=== PATIENT | female | born 2000 | race Caucasian/White ===

== ENCOUNTER 2023-12-23 22:04 | Emergency (ER) | payer SELFPAY ==
--- NOTE | 2023-12-23 22:30 | ER ---
Nurse's Notes [facility] Name: Shawanda Harrington Age: 23 yrs Sex: Female : 2000 Arrival Date: 12/23/2023 Time: 22:04 Bed IW2 Private MD: Diagnosis: Pediculosis due to Pediculus humanus capitis Presentation: 12/22 22:16 Chief complaint: Patient states: itching scalp with bugs,onset December 03. Coronavirus pf1 screen: Vaccine status: Patient reports receiving the 2nd dose of the covid vaccine. Client denies travel out of the [place] in the last 14 days. At this time, the client does not indicate any symptoms associated with coronavirus-19. Ebola Screen: Patient negative for fever greater than or equal to 101.5 degrees Fahrenheit, and additional compatible Ebola Virus Disease symptoms. Onset: The symptoms/episode began/occurred 12/04/23. Anaphylaxis evaluation, no signs or symptoms of anaphylaxis were noted. Initial Sepsis Screen: Does the patient meet any 2 criteria? HR > 90 bpm. No. Patient's initial sepsis screen is negative. Does the patient have a suspected source of infection? No. Patient's initial sepsis screen is negative. Risk Assessment: Do you want to hurt yourself or someone else? Patient reports no desire to harm self or others. Onset of symptoms was December 04, 2023. 22:16 Method Of Arrival: Ambulatory pf1 22:16 Acuity: JOSEFINA 5 pf1 Triage Assessment: 22:24 General: Appears in no apparent distress. unkempt, well developed, Behavior is calm, pf1 cooperative, appropriate for age, quiet. Pain: Denies pain. Derm: Reports itching, with bugs to scalp. 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 - Infectious Disease History:: Denies. - Social history:: Smoking status: Patient denies any tobacco usage or history of. Patient uses alcohol, only on a social basis. Patient/guardian denies using street drugs. Screenin:37 [facility] ED Fall Risk Assessment (Adult) History of falling in the last 3 months, pf1 including since admission No falls in past 3 months (0 pts) Confusion or Disorientation No (0 pts) Intoxicated or Sedated No (0 pts) Impaired Gait No (0 pts) Mobility Assist Device Used No (0 pt) Altered Elimination No (0 pt) Score/Fall Risk Level 0 - 2 = Low Risk Oriented to surroundings, Maintained a safe environment, Educated pt \T\ family on fall prevention, incl call for assistance when getting out of bed, Assessed \T\ reinforced patient's understanding of fall precautions, Provided non-skid footwear, Hourly rounding (assess needs \T\ fall precautionary measures) done, Used ambulatory aids as needed (educated on \T\ assisted with), Used gait belt as appropriate. Abuse screen: Denies threats or abuse. Nutritional screening: No deficits noted. Tuberculosis screening: No symptoms or risk factors identified. Assessment: 22:36 General: Appears in no apparent distress. uncomfortable, unkempt, well developed, pf1 Behavior is calm, cooperative, appropriate for age, quiet. Pain: Denies pain. Neuro: No deficits noted. Level of Consciousness is awake, alert, obeys commands, Oriented to person, place, time, situation. Cardiovascular: No deficits noted. Capillary refill < 3 seconds Patient's skin is warm and dry. Respiratory: No deficits noted. Airway is patent Respiratory effort is even, unlabored, Respiratory pattern is regular, symmetrical, Breath sounds are clear bilaterally. GI: No deficits noted. No signs and/or symptoms were reported involving the gastrointestinal system. : No deficits noted. No signs and/or symptoms were reported regarding the genitourinary system. EENT: No deficits noted. No signs and/or symptoms were reported regarding the EENT system. Derm: Reports itching, with bugs to scalp. Vital Signs: 22:16 BP 106 / 78; Pulse 95; Resp 16; Temp 98.3; Pulse Ox 100% on R/A; Weight 76.2 kg; Height pf1 5 ft. 2 in. ; Pain 0/10; 22:16 Body Mass Index 30.73 (76.20 kg, 157.48 cm) pf1 22:16 Pain Scale: Adult pf1 ED Course: 22:09 Patient arrived in ED. gm2 22:10 Papito Garcia MD is Attending Physician. sp4 22:22 Triage completed. pf1 22:24 Arm band placed on right wrist. pf1 22:24 Patient has correct armband on for positive identification. pf1 22:37 No provider procedures requiring assistance completed. Patient did not have IV access pf1 during this emergency room visit. 22:38 Provided Education on: follow up and prescriptions. pf1 Administered Medications: No medications were administered Medication: 22:38 VIS not applicable for this client. pf1 Outcome: 22:29 Discharge ordered by MD. sp4 22:38 Discharged to home ambulatory, pf1 22:38 Condition: stable 22:38 Discharge instructions given to patient, Instructed on discharge instructions, follow up and referral plans. Demonstrated understanding of instructions, follow-up care, medications, Prescriptions given X 2, 22:39 Patient left the ED. pf1 Signatures: Rosibel Patel RN RN pf1 Papito Garcia MD MD sp4 Sarah Ross gm2
--- NOTE | 2023-12-23 22:30 | EDPHYS ---
Physician Documentation [facility] Name: Shawanda Harrington Age: 23 yrs Sex: Female : 2000 Arrival Date: 12/23/2023 Time: 22:04 Bed IW2 Private MD: ED Physician Papito Garcia HPI: 12/22 22:10 This 23 yrs old Female presents to ER via Unassigned with complaints of Gen sp4 complaint. . 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 - Infectious Disease History:: Denies. - Social history:: Smoking status: Patient denies any tobacco usage or history of. Patient uses alcohol, only on a social basis. Patient/guardian denies using street drugs. Vital Signs: 22:16 BP 106 / 78; Pulse 95; Resp 16; Temp 98.3; Pulse Ox 100% on R/A; Weight 76.2 kg; Height pf1 5 ft. 2 in. ; Pain 0/10; 22:16 Body Mass Index 30.73 (76.20 kg, 157.48 cm) pf1 22:16 Pain Scale: Adult pf1 MDM: 22:14 Patient medically screened. sp4 Administered Medications: No medications were administered Disposition Summary: 12/23/23 22:29 Discharge Ordered Problem: new sp4 Symptoms: have improved sp4 Condition: Stable sp4 Diagnosis - Pediculosis due to Pediculus humanus capitis sp4 Followup: sp4 - With: Private Physician - When: 7 - 10 days - Reason: Discharge Instructions: - Discharge Summary Sheet sp4 - Lice, Adult sp4 Forms: - Prescription Opioid Use sp4 Prescriptions: - ivermectin 1 % Topical cream - apply 1 application TOPICAL route once Apply once, leave on for 10 minutes then sp4 wash off; 45 gram; Refills: 0, Product Selection Permitted - permethrin 1 % Topical liquid - apply 60 milliliter TOPICAL route once may repeat treatment 7 days after first sp4 treatment if live lice remain; 120 milliliter; Refills: 0, Product Selection Permitted Signatures: Rosibel Patel RN RN pf1 Papito Garcia MD MD sp4
[2023-12-24 04:56] VITALS: BP 106/78; TEMP 98.3; O2SAT 100
== END 2023-12-23 22:39 | disposition home or self-care (01) ==
LOC: ER 22:04
DX: B85.0 Pediculosis due to Pediculus humanus capitis (principal); Z88.1 Allergy status to other antibiotic agents
CPT/HCPCS: 99283

== ENCOUNTER 2024-06-27 18:50 | Emergency (ER) | payer SELFPAY ==
[2024-06-27] MEDS ORDERED: NA CHLORIDE 0.9% 1,000 ML ONE (19:14)
[2024-06-27 19:23] LABS: Absolute Lymphocytes (CBC) 1.8 K/uL (0.7-4.9); Absolute Monocytes 0.3 K/uL (0.1-1.3); Absolute Neutrophil 4.1 K/uL (1.8-8.0); Basophils % 0.8 % (0-1.3); Eosinophils % 0.5 % (0-4.4); Hemoglobin 11.3 g/dL (12.0-15.0); Lymphocytes % 28.5 % (15.3-44.8); MCH 26.2 pg (27.0-35.0); MCHC 32.2 g/dL (32.0-36.0); MCV 81.6 fL (80-100); MPV 8.6 fL (7.6-11.3); Monocytes % 4.3 % (3.3-12.3); Neutrophils % 65.9 % (41.7-73.7); Platelets 213 thou/uL (152-406); Protime INR 1.17; RBC Red Blood Cell Count 4.29 M/uL (3.86-4.86); Red Cell Distribution Width 13.4 % (12.1-15.2)
[2024-06-27 19:40] LABS: ALT/SGPT 17 U/L (13-56); Albumin 3.9 g/dL (3.4-5.0); Albumin/Globulin Ratio 1.2 (1.1-1.8); Alkaline Phosphatase 53 U/L (45-117); Anion Gap 9.7 mEq/L (5.0-15.0); BUN Blood Urea Nitrogen 14 mg/dL (7-18); Bicarbonate 24 mEq/L (21-32); Bilirubin Total 0.3 mg/dL (0.2-1.0); Globulin 3.2 g/dL (2.3-3.5); Glomerular Filtration Rate 93 ml/min (=/>90); Glucose Level 114 mg/dL (74-106); Potassium 3.7 mEq/L (3.5-5.1); Protein, Total 7.1 g/dL (6.4-8.2); Sodium Level 142 mEq/L (136-145)
[2024-06-27 19:43] LABS: AST/SGOT < 10 U/L (15-37); Bilirubin Direct < 0.2 mg/dL (0-0.2); Bilirubin Indirect, Calculated 0.1 mg/dL (0.2-0.8); Troponin High Sensitivity < 3.0 pg/mL (<58.9)
--- NOTE | 2024-06-27 19:44 | RAD REPORT ---
EXAMINATION: ONE VIEW CHEST XR CLINICAL INDICATION: Female, 24 years old.syncope TECHNIQUE: 1 View, AP supine, X-ray of the chest was performed. [id number]. COMPARISON: No prior exam. FINDINGS: Lungs and pleura: Clear lungs. No effusion. Heart and mediastinum: Normal heart size. Unremarkable mediastinal contours. Osseous structures: No acute abnormality. Tubes/lines: None Other: None. IMPRESSION: No acute intrathoracic abnormality.
[2024-06-27 20:25] LABS: Sqamous Epithelial <5 /HPF (None Seen); Urine Bacteria >50 /HPF (<20); Urine Bilirubin NEGATIVE (Negative); Urine Blood Trace (Negative); Urine Clarity Extremely Turbid (Clear); Urine Color Yellow (Yellow); Urine Culture Reflex Order REFLEXED; Urine Glucose NEGATIVE (Negative); Urine Ketones TRACE (Negative); Urine Micro Reflex YN NO BILL MICROSCOPIC; Urine Mucus 4+ /HPF (None Seen); Urine Nitrite NEGATIVE (Negative); Urine Protein 1+ (Negative); Urine Urobilinogen Normal (Normal); Urine pH 5.5 (5.0-7.0)
--- NOTE | 2024-06-27 20:54 | RAD REPORT ---
EXAMINATION: CT HEAD WITHOUT CONTRAST CLINICAL INDICATION: Female, 24 years old.SYNCOPE TECHNIQUE: Axial CT images from the skull base to the vertex without intravenous contrast. Coronal an d sagittal reformatted images were created from the data set. One or more of the following dose reduction techniques were used: Automated exposure control, adjustment of the mA and/or kV according to patient size, and/or iterative reconstruction. Unless otherwise specified, incidental findings do not require dedicated imaging follow-up. [id number]. COMPARISON: No prior exam. FINDINGS: INTRACRANIAL: No acute intracranial hemorrhage. No hydrocephalus. No mass effect or midline shift. No significant white matter disease. VASCULATURE: No visualized abnormalities in the arteries or dural venous sinuses. SCALP/SKULL: No significant soft tissue or osseous abnormalities. SINUSES: The visualized paranasal sinuses and mastoid air cells are predominantly clear. IMPRESSION: No acute intracranial abnormality.
[2024-06-27] MEDS ORDERED: CEFTRIAXONE 1000 MG/VIAL ONE (22:41)
--- NOTE | 2024-06-27 23:07 | EDPHYS ---
Physician Documentation [facility] Name: Shawanda Harrington Age: 24 yrs Sex: Female : 2000 Arrival Date: 06/27/2024 Time: 18:50 Bed 13 Private MD: ED Physician Garry Lott HPI: 06/27 19:05 This 24 yrs old Female presents to ER via EMS with complaints of Syncope. cp 19:05 The patient has experienced syncope, lost consciousness. Onset: The symptoms/episode cp began/occurred just prior to arrival. Duration: This was a single episode, that lasted an unknown period of time. Associated injury: The patient did not suffer any apparent associated injury. Associated signs and symptoms: Pertinent positives: dizziness, lightheadedness, Pertinent negatives: abdominal pain, chest pain, palpitations, seizure. Current symptoms: Currently, the patient is not experiencing any symptoms, the patient feels back to baseline. 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 Unsure how cp long she had lost consciousness, but reports being lightheaded prior to losing consciousness. 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 - Infectious Disease History:: Denies. - Social history:: Smoking status: Patient denies any tobacco usage or history of. ROS: 19:10 Constitutional: Negative for body aches, chills, fever, poor PO intake, cp 19:10 Eyes: Negative for injury, pain, redness, and discharge, cp 19:10 ENT: Negative for drainage from ear(s), ear pain, sore throat, difficulty swallowing, difficulty handling secretions, 19:10 Neck: Negative for pain with movement, pain at rest, stiffness, 19:10 Cardiovascular: Negative for chest pain, edema, palpitations, 19:10 Respiratory: Negative for cough, shortness of breath, wheezing, 19:10 Abdomen/GI: Negative for abdominal pain, vomiting, diarrhea, constipation, 19:10 Back: Negative for pain at rest, pain with movement, 19:10 : Negative for urinary symptoms, 19:10 Neuro: Positive for syncope, lightheaded, Negative for altered mental status, dizziness, headache, numbness, seizure activity, weakness, 19:10 All other systems are negative, cp Exam: 19:07 ECG was reviewed by the Attending Physician. cp 19:15 Constitutional: The patient appears in no acute distress, alert, awake, comfortable, cp non-diaphoretic, non-toxic, well developed, well nourished, 19:15 Head/Face: Normocephalic, atraumatic. cp 19:15 Eyes: Periorbital structures: appear normal, Pupils: equal, round, and reactive to light and accomodation, Extraocular movements: intact throughout, Conjunctiva: normal, no exudate, no injection, Sclera: no appreciated abnormality, Lids and lashes: appear normal, bilaterally, 19:15 ENT: External ear(s): are unremarkable, Nose: is normal, Mouth: Lips: moist, Oral mucosa: pink and intact, moist, Posterior pharynx: Airway: no evidence of obstruction, patent, 19:15 Neck: C-spine: vertebral tenderness, is not appreciated, crepitus, is not appreciated, ROM/movement: is normal, is supple, without pain, no range of motions limitations, no nuchal rigidity, 19:15 Chest/axilla: Inspection: normal, 19:15 Cardiovascular: Rate: normal, Rhythm: regular, 19:15 Respiratory: the patient does not display signs of respiratory distress, Respirations: normal, no use of accessory muscles, no retractions, labored breathing, is not present, Breath sounds: are clear throughout, no decreased breath sounds, no stridor, no wheezing, 19:15 Abdomen/GI: Inspection: abdomen appears normal, Palpation: abdomen is soft and non-tender, in all quadrants, 19:15 Back: pain, is absent, ROM is normal, 19:15 Musculoskeletal/extremity: Exam is negative for decreased range of motion, deformity, injury, 19:15 Neuro: Orientation: to person, place \T\ time. Mentation: is normal, Cerebellar function: is grossly normal, Motor: moves all fours, strength is normal, Sensation: no obvious gross deficits, Vital Signs: 19:04 BP 101 / 63; Pulse 83; Resp 16; Temp 97.8; Pulse Ox 100% on R/A; Weight 81.65 kg; mb9 Height 5 ft. 5 in. ; Pain 0/10; 19:18 BP 100 / 66 Supine; Pulse 88; Resp 16; Pulse Ox 100% ; mb9 19:20 BP 95 / 66 Sitting; Pulse 105; Resp 18; Pulse Ox 100% ; mb9 19:22 BP 95 / 68; Pulse 102; Resp 16; Pulse Ox 100% on R/A; mb9 23:04 BP 105 / 69; Pulse 90; Resp 16; Pulse Ox 99% on R/A; mb9 19:04 Body Mass Index 29.95 (81.65 kg, 165.1 cm) mb9 19:04 Pain Scale: Adult mb9 MDM: 18:57 Medical Screening Exam initiated 19:15 Differential Diagnosis: cardiac arrhythmia, cerebrovascular accident, GI bleed, pseudo cp seizure, seizure, transient ischemic attack, vasovagal episode, anemia. 23:05 Data reviewed: vital signs, nurses notes, lab test result(s), EKG, radiologic studies, CT scan, plain films. 23:05 I considered the following discharge prescriptions or medication management in the emergency department Medications were administered in the Emergency Department. See MAR. 23:05 Independent interpretation of the following test(s) in the Emergency Department EKG: See my EKG interpretation above. Counseling: I had a detailed discussion with the patient and/or guardian regarding the historical points, exam findings, and any diagnostic results supporting the discharge/admit diagnosis, lab results, radiology results, the need for outpatient follow up, a family practitioner, to return to the emergency department if symptoms worsen or persist or if there are any questions or concerns that arise at home. Response to treatment: the patient's symptoms have markedly improved after treatment, and as a result, I will discharge patient. 06/27 19:00 Order name: Basic Metabolic Panel; Complete Time: 19:51 06/27 22:41 Interpretation: Normal except: CL 112; GLUC 114. 06/27 19:00 Order name: CBC with Diff; Complete Time: 19:51 06/27 22:41 Interpretation: Normal except: HGB 11.3; HCT 35.0; MCH 26.2. 06/27 19:00 Order name: LFT's; Complete Time: 19:51 06/27 22:41 Interpretation: Normal except: AST < 10; IBILI, CALC 0.1. cp 06/27 19:00 Order name: Magnesium; Complete Time: 19:51 cp 06/27 19:00 Order name: PT-INR; Complete Time: 19:51 cp 06/27 19:00 Order name: Troponin HS; Complete Time: 19:51 cp 06/27 19:00 Order name: Urinalysis W/Microscopic; Complete Time: 22:32 cp 06/27 22:32 Interpretation: Normal except: [facility] Extremely Turbid; UKET TRACE; UBLD Trace; UPROT 1+; cp UESTR 75; UWBC 10-20; URBC 5-10; UBACT >50; MUCUS 4+. 06/27 19:00 Order name: Test, Urine; Complete Time: 22:32 cp 06/27 20:28 Order name: Urine Culture EDMS 06/27 19:00 Order name: XRAY Chest (1 view); Complete Time: 19:51 cp 06/27 19:51 Order name: CT Head Brain wo Cont; Complete Time: 22:32 cp 06/27 19:00 Order name: Cardiac monitoring; Complete Time: 19:04 cp 06/27 19:00 Order name: EKG - Nurse/Tech; Complete Time: 19:04 cp 06/27 19:00 Order name: IV Saline Lock; Complete Time: 19:04 cp 06/27 19:00 Order name: Labs collected and sent; Complete Time: 19:04 cp 06/27 19:00 Order name: O2 Per Protocol; Complete Time: 19:04 cp 06/27 19:00 Order name: O2 Sat Monitoring; Complete Time: 19:04 cp 06/27 19:00 Order name: Orthostatic Blood Pressure; Complete Time: 19:08 cp EC:07 Rate is 82 beats/min. Rhythm is regular. TX interval is normal. QRS interval is normal. cp QT interval is normal. T waves are Inverted in lead aVR. Interpreted by me. Reviewed by me. Administered Medications: 19:25 Drug: NS 0.9% IV 1000 ml IV at 1 bolus Per protocol; to be given as a bolus over 60 mb9 minutes Route: IV; Rate: 1 bolus; Site: left antecubital; 21:09 Follow up: Response: No adverse reaction; IV Status: Completed infusion mb9 22:48 Drug: Rocephin IV 1 grams IV at calculated rate once; Given slow IV push per pharmacy mb9 instructions Route: IV; Rate: calculated rate; Site: left antecubital; 23:32 Follow up: Response: No adverse reaction; IV Status: Completed infusion mb9 Disposition Summary: 06/27/24 23:06 Discharge Ordered Notes: Location: Home cp Problem: new cp Symptoms: have improved cp Condition: Stable cp Diagnosis - UTI/ Urinary tract infection, site not specified cp - Syncope cp Followup: cp - With: Private Physician - When: 2 - 3 days - Reason: Recheck today's complaints Discharge Instructions: - Syncope cp - Urinary Tract Infection, Adult cp - Discharge Summary Sheet mb9 Forms: - Medication Reconciliation Form cp - Antibiotic Education cp - Prescription Opioid Use cp - Patient Portal Instructions cp - Leadership Thank You Letter cp - Work release form mb9 Prescriptions: - Bactrim DS 800-160 mg Oral Tablet - take 1 tablet ORAL route every 12 hours for 7 days; 14 tablet; Refills: 0, cp Product Selection Permitted Signatures: Dispatcher [employer] EDMS Garry Lay PA PA cp Wilkerson, Mary Beth, RN RN mb9 Corrections: (The following items were deleted from the chart) 19:01 19:01 BASIC METABOLIC PANEL+C.LAB.BRZ ordered. EDMS EDMS 19:01 19:01 CBC+H.LAB.BRZ ordered. EDMS EDMS 19: 19:01 HEPATIC FUNCTION+C.LAB.BRZ ordered. EDMS EDMS 19:01 19:01 MAGNESIUM+C.LAB.BRZ ordered. EDMS EDMS 19: 19:01 PROTIME (+INR)+COAG.LAB.BRZ ordered. EDMS EDMS 19:01 19:01 Troponin High Sensitivity+C.LAB.BRZ ordered. EDMS EDMS 19:01 19:01 Urinalysis W/Microscopic+U.LAB.BRZ ordered. EDMS EDMS 19:01 19:01 Test, Urine+UC.LAB.BRZ ordered. EDMS EDMS 19: 19:01 Chest Single View+RAD.RAD.BRZ ordered. EDMS EDMS 19:51 19:51 Head Brain Wo Cont+CT.RAD.BRZ ordered. EDMS EDMS 23:05 23:05 Recheck B/P ordered. cp cp 06/28 23:24 06/27 19:10 All other systems are negative, cp cp 06/28 23:31 06/27 19:00 Differential Diagnosis: cardiac arrhythmia, cerebrovascular accident, GI cp bleed, pseudo seizure, seizure, transient ischemic attack, vasovagal episode, anemia, cp
--- NOTE | 2024-06-27 23:07 | ER ---
Nurse's Notes [facility] Name: Shawanda Harrington Age: 24 yrs Sex: Female : 2000 Arrival Date: 06/27/2024 Time: 18:50 Bed 13 Private MD: Diagnosis: UTI/ Urinary tract infection, site not specified;Syncope Presentation: 06/27 19:04 Chief complaint: EMS states: "toned out for syncopal episode while standing at work. Pt mb9 had positive LOC and hit nose and head. Pt denies pain at this time. Coronavirus screen: Vaccine status: Patient reports receiving the 2nd dose of the covid vaccine. Ebola Screen: No symptoms or risks identified at this time. Initial Sepsis Screen: Does the patient meet any 2 criteria? No. Patient's initial sepsis screen is negative. Does the patient have a suspected source of infection? No. Patient's initial sepsis screen is negative. Risk Assessment: Do you want to hurt yourself or someone else? Patient reports no desire to harm self or others. Onset of symptoms was June 27, 2024. Care prior to arrival: Medication(s) given: Normal saline infusion, 1000 mL, IV initiated. 20 GA, in the left antecubital area. 19:04 Acuity: JOSEFINA 3 mb9 19:04 Method Of Arrival: EMS: [facility] mb9 Triage Assessment: 19:06 General: Appears in no apparent distress. Behavior is calm, cooperative. Pain: Denies mb9 pain. EENT: No signs and/or symptoms were reported regarding the EENT system. Neuro: [place] Agitation-Sedation Scale (RASS): 0 - Alert and Calm Level of Consciousness is awake, alert, obeys commands, Oriented to person, place, time, situation, Appropriate for age Denies weakness dizziness. Cardiovascular: Patient's skin is warm and dry. Respiratory: Airway is patent Respiratory effort is even, unlabored, Respiratory pattern is regular, symmetrical. GI: No signs and/or symptoms were reported involving the gastrointestinal system. : No signs and/or symptoms were reported regarding the genitourinary system. Derm: Skin is intact, Skin is dry, Skin is pale, Skin temperature is cool. Musculoskeletal: Range of motion: intact in all extremities. AIR SAMPLING AND MONITORING: 19:23 LMP 06/26/2024, unknown mb9 Historical: - Allergies: 18:53 Amoxicillin; mb9 - Home Meds: 19:23 None [Active]; mb9 - PMHx: 19:23 None; mb9 - PSHx: 19:23 None; mb9 - Immunization history:: Adult Immunizations up to date. - Infectious Disease History:: Denies. - Social history:: Smoking status: Patient denies any tobacco usage or history of. Screenin:53 [facility] ED Fall Risk Assessment (Adult) History of falling in the last 3 months, mb9 including since admission Yes- single mechanical fall (1 pt) Confusion or Disorientation No (0 pts) Intoxicated or Sedated No (0 pts) Impaired Gait No (0 pts) Mobility Assist Device Used No (0 pt) Altered Elimination No (0 pt) Score/Fall Risk Level 0 - 2 = Low Risk Oriented to surroundings, Maintained a safe environment, Educated pt \\T\\ family on fall prevention, incl call for assistance when getting out of bed. Abuse screen: Denies threats or abuse. Nutritional screening: No deficits noted. Tuberculosis screening: No symptoms or risk factors identified. Assessment: 19:07 Reassessment: see triage assessment. mb9 20:28 Reassessment: No changes from previously documented assessment. Patient and/or family mb9 updated on plan of care and expected duration. Pain level reassessed. Patient is alert, oriented x 3, equal unlabored respirations, skin warm/dry/pink. 22:31 Reassessment: No changes from previously documented assessment. Patient and/or family vc1 updated on plan of care and expected duration. Pain level reassessed. Patient is alert, oriented x 3, equal unlabored respirations, skin warm/dry/pink. 23:32 Reassessment: No changes from previously documented assessment. Patient and/or family mb9 updated on plan of care and expected duration. Pain level reassessed. Patient states feeling better. Patient states symptoms have improved. Vital Signs: 19:04 BP 101 / 63; Pulse 83; Resp 16; Temp 97.8; Pulse Ox 100% on R/A; Weight 81.65 kg; mb9 Height 5 ft. 5 in. ; Pain 0/10; 19:18 BP 100 / 66 Supine; Pulse 88; Resp 16; Pulse Ox 100% ; mb9 19:20 BP 95 / 66 Sitting; Pulse 105; Resp 18; Pulse Ox 100% ; mb9 19:22 BP 95 / 68; Pulse 102; Resp 16; Pulse Ox 100% on R/A; mb9 23:04 BP 105 / 69; Pulse 90; Resp 16; Pulse Ox 99% on R/A; mb9 19:04 Body Mass Index 29.95 (81.65 kg, 165.1 cm) mb9 19:04 Pain Scale: Adult mb9 ED Course: 18:52 Patient arrived in ED. mb9 18:52 Arm band placed on. mb9 18:57 Garry Lay PA is PHCP. cp 18:57 Garry Lott MD is Attending Physician. cp 19:04 Marietta Singh RN is Primary Nurse. mb9 19:04 Initial lab(s) drawn, by me, sent to lab. Maintain EMS IV. Dressing intact. Good blood mb9 return noted. Site clean \\T\\ dry. Gauge \\T\\ site: 20g left AC. Flushed with 10 mL NS. 19:04 EKG done, by ED staff, reviewed by Garry FIELD. mb9 19:06 Triage completed. mb9 19:07 Placed in gown. Bed in low position. Call light in reach. Side rails up X 1. Provided mb9 Education on: press call light if needing anything. Client placed on continuous cardiac and pulse oximetry monitoring. NIBP monitoring applied. air sampling and monitoring on. 19:40 XRAY Chest (1 view) In Process Unspecified. EDMS 20:28 No provider procedures requiring assistance completed. mb9 20:48 CT Head Brain wo Cont In Process Unspecified. EDMS 22:43 Urine Culture Sent. mb9 23:07 IV discontinued, intact, bleeding controlled, No redness/swelling at site. Pressure mb9 dressing applied. Administered Medications: 19:25 Drug: NS 0.9% IV 1000 ml IV at 1 bolus Per protocol; to be given as a bolus over 60 mb9 minutes Route: IV; Rate: 1 bolus; Site: left antecubital; 21:09 Follow up: Response: No adverse reaction; IV Status: Completed infusion mb9 22:48 Drug: Rocephin IV 1 grams IV at calculated rate once; Given slow IV push per pharmacy mb9 instructions Route: IV; Rate: calculated rate; Site: left antecubital; 23:32 Follow up: Response: No adverse reaction; IV Status: Completed infusion mb9 Medication: 19:07 VIS not applicable for this client. mb9 Outcome: 23:06 Discharge ordered by . rubén 23:07 Discharged to home ambulatory, yaritza 23:07 Condition: stable 23:07 Discharge instructions given to patient, Instructed on discharge instructions, follow up and referral plans. Demonstrated understanding of instructions, follow-up care, medications, Prescriptions given X 1, 23:33 Patient left the ED. mb9 Signatures: Dispatcher [employer] EDMS Garry Lay PA PA cp Calcote, Vanessa, RN RN vc1 Marietta Singh RN RN mb9
[2024-06-28 04:53] VITALS: TEMP 97.8
[2024-06-28 04:58] VITALS: BP 105/69; O2SAT 99
== END 2024-06-27 23:33 | disposition home or self-care (01) ==
LOC: ER 18:50
DX: N39.0 Urinary tract infection, site not specified (principal)
CPT/HCPCS: 36415; 70450; 71045; 80048; 80076; 81001; 81025; 83735; 84484; 85025; 85610; 87086; 87088; 96361; 96365; 99285; J0696; J7030